=== PATIENT | male | born 1965 | race Caucasian/White ===

== ENCOUNTER 2016-11-15 05:38 | Day surgery (SDC) | payer OTHER ==
[~2016-11-15] VITALS: Ht 188 cm; Wt 161.0 kg
[~2016-11-15 05:38] MED LIST: ALLOPURINOL100 MG PO; AMOXICILLIN875 MG PO; INDOCIN50 MG PO; MECLIZINE HCL25 MG PO; PEN-VEE K,VEET500 MG PO; VALIUM5 MG PO
[2016-11-15 06:21] VITALS: BP 134/77
[2016-11-15 10:10] VITALS: BP 118/69
[2016-11-15 10:40] VITALS: BP 128/83
== END 2016-11-15 10:45 | disposition home or self-care (01) ==
LOC: SDC 05:38
DX: M75.101 Unspecified rotator cuff tear or rupture of right shoulder, not specified as traumatic (principal); M75.41 Impingement syndrome of right shoulder; S46.101A Unspecified injury of muscle, fascia and tendon of long head of biceps, right arm, initial encounter; M10.9 Gout, unspecified
CPT/HCPCS: 93005; C1713; J0131; J0330; J0690; J1100; J2250; J2405; J2795; J3010